=== PATIENT | female | born 1950 | race Hispanic/Latino ===

== ENCOUNTER 2023-10-30 16:09 | Outpatient (CLI) | payer MEDICARE, OTHER ==
[2023-10-30 17:50] LABS: #Eosinphils 0.2 10x3/uL (0.0-0.5); #Monocytes 0.6 10x3/uL (0.0-1.1); #Neutrophils 4.6 10x3/uL (1.5-8.4); %Basophils 0.4 % (0.0-2.0); %Eosinophils 3.3 % (0.0-6.0); %Lymphocytes 23.3 % (18.0-47.0); %Monocytes 8.8 % (0.0-10.0); %Neutrophils 63.9 % (40.0-75.0); Hematocrit 39.4 % (34.9-44.5); Hemoglobin 12.9 g/dL (12.0-15.5); Mean Corpuscular HGB CONC 32.7 g/dL (32.0-36.0); Mean Corpuscular Hemoglobin 30.1 pg (27.0-33.0); Mean Corpuscular Volume 92.1 fl (81.6-98.3); Mean Platelet Volume 9.8 fl (7.4-10.4); Platelet Count 304 10x3/uL (150-450); RBC Distribution Width 13.9 % (11.5-14.5); Red Blood Cell (RBC) Count 4.28 10x6/uL (3.90-5.03); White Blood Cell (WBC) Count 7.2 10x3/uL (3.5-10.5)
[2023-10-30 17:51] LABS: ALT (SGPT) 30 U/L (8-55); AST (SGOT) 25 U/L (5-34); Albumin 4.1 g/dL (3.4-4.8); Alkaline Phosphatase 64 U/L (40-110); Anion Gap 12 mmol/L (10-20); BUN (Urea Nitrogen) 27 mg/dL (9.8-20.1); Bilirubin, Direct 0.1 mg/dL (0.1-0.3); Bilirubin, Total 0.3 mg/dL (0.2-1.2); Calc. Creatinine Clearance 0 mL/min (70-130); Calcium 9.5 mg/dL (7.8-10.44); Carbon Dioxide 27 mmol/L (23-31); Chloride 107 mmol/L (98-107); Estimated GFR 82; Glucose 78 mg/dL (83-110); Potassium 3.9 mmol/L (3.5-5.1); Protein, Total 6.5 g/dL (5.8-8.1); Sodium 142 mmol/L (136-145)
== END 2023-10-30 16:10 | disposition home or self-care (01) ==
LOC: LABBT 16:09
PROVIDERS: ATTEND Surgery
DX: Z01.818 Encounter for other preprocedural examination (principal); K80.20 Calculus of gallbladder without cholecystitis without obstruction
CPT/HCPCS: 80048; 80076; 85025; 93005; 93010

== ENCOUNTER 2023-11-10 09:55 | Day surgery (SDC) | payer MEDICARE, OTHER ==
[2023-11-08 13:42] VITALS: BMI 31.1
[2023-11-10] MEDS ORDERED: Lidocaine 1% PF 5 ML VIAL ONE ×2 (10:23→12:11)
[2023-11-10] MEDS ORDERED: Ondansetron PF 4 MG/2 ML Vial ONE ×4 (10:23→13:24)
[2023-11-10] MEDS ORDERED: Dexamethasone 20 MG/5 ML VIAL ONE ×2 (10:23→12:11)
[2023-11-10] MEDS ORDERED: PROPOFOL 20 ML ONE (10:23)
[2023-11-10] MEDS ORDERED: fentaNYL PF 100 MCG/2 ML SYRINGE ONE (10:23)
[2023-11-10] MEDS ORDERED: Rocuronium Bromide 10 MG/ML (10ML VIAL) ONE ×2 (10:24→12:11)
[2023-11-10] MEDS ORDERED: Famotidine/PF 20 mg/2ml Vial ONE (11:08)
[2023-11-10] MEDS ORDERED: Bupivacaine 0.25% HCL 30 ML VIAL ONE (11:21)
[2023-11-10] MEDS ORDERED: EPINEPHrine 1 MG/ML VIAL ONE (11:21)
[2023-11-10] MEDS ORDERED: Propofol 500 MG/50 ML VIAL ONE (11:25)
[2023-11-10] MEDS ORDERED: CEFAZOLIN 2 GM VIAL ONE (11:55)
[2023-11-10] MEDS ORDERED: Sodium Chloride 0.9% 100 ML ONE (11:55)
[2023-11-10] MEDS ORDERED: Succinylcholine 200 MG/10 ml SYRINGE FS ONE ×2 (12:09→12:11)
[2023-11-10] MEDS ORDERED: PROPOFOL 200 MG/20 ML VIAL ONE (12:11)
[2023-11-10] MEDS ORDERED: ePHEDrine Sulfate 50 MG/10 ML VIAL ONE (12:24)
[2023-11-10] MEDS ORDERED: SUGAMMADEX SODIUM 200 MG/2 ML VIAL ONE (12:44)
[2023-11-10] MEDS ORDERED: fentaNYL 50 mcg/mL 1 mL Vial ONE ×2 (13:44→14:30)
== END 2023-11-10 15:55 | disposition home or self-care (01) ==
LOC: SDC 09:55
PROVIDERS: ATTEND Surgery
PROC: 0FT44ZZ Resection of Gallbladder, Percutaneous Endoscopic Approach (ICD-10-PCS; principal; 2023-11-10)
DX: K80.10 Calculus of gallbladder with chronic cholecystitis without obstruction (principal); E78.00 Pure hypercholesterolemia, unspecified; Z90.710 Acquired absence of both cervix and uterus; Z90.89 Acquired absence of other organs; Z88.2 Allergy status to sulfonamides; Z88.5 Allergy status to narcotic agent; Z88.8 Allergy status to other drugs, medicaments and biological substances; Z79.899 Other long term (current) drug therapy
CPT/HCPCS: 47562; J0171; J3010; 88304; C1776; J1100; J1790; J2405; J2704; J3490; S0020; S0028

== ENCOUNTER 2024-05-14 21:46 | Emergency (ER) | payer MEDICARE, OTHER ==
[2024-05-14 23:05] LABS: #Basophils 0.03 10x3/uL (0.0-0.2); %Basophils 0.2 % (0.0-1.0); %Eosinophils 1.3 % (0.0-10.0); %Lymphocytes 12.8 % (21.0-51.0); %Monocytes 5.7 % (0.0-10.0); %Neutrophils 79.6 % (42.0-75.0); Hematocrit 38.4 % (36.0-47.0); Hemoglobin 13.2 g/dL (12.0-16.0); Mean Corpuscular HGB CONC 34.4 g/dL (32.0-36.0); Mean Corpuscular Hemoglobin 31.5 pg (27.0-31.0); Mean Corpuscular Volume 91.6 fL (78.0-98.0); Mean Platelet Volume 9.8 fL (7.4-10.4); Platelet Count 233 10x3/uL (130-400); RBC Distribution Width 12.9 % (11.5-14.5); Red Blood Cell (RBC) Count 4.19 mill/uL (4.20-5.40)
[2024-05-14] MEDS ORDERED: Morphine 4 MG/ML VIAL ONE (23:19)
[2024-05-14] MEDS ORDERED: Ondansetron PF 4 MG/2 ML Vial ONE (23:20)
[2024-05-14 23:27] LABS: Bacteria/HPF None Seen HPF (None Seen); Bilirubin Negative (Negative); Blood, Urine Negative (Negative); CAUTI Indications for Culture Dysuria,urgency,freq; Clarity Turbid (Clear); Glucose, Urine (Dipstick) Normal (Negative); Ketone, Urine Negative (Negative); Leukocyte Negative Leu/uL (Negative); Nitrite Negative (Negative); Protein, Urine (Dipstick) Negative (Neg-Trace); RBC/HPF 0-3 HPF (0-3); Specific Gravity, Urine 1.011 (1.002-1.036); Squamous Epithelial 0-3 HPF (0-3); Urobilinogen Normal mg/dL (Less than 2); WBC/HPF 0-3 HPF (0-3); pH, Urine 7.5 (5.0-9.0)
[2024-05-14 23:28] LABS: Urine Culture Reflex No No
[2024-05-14 23:29] LABS: ALT (SGPT) 36 U/L (8-55); AST (SGOT) 28 U/L (5-34); Albumin 4.2 g/dL (3.4-4.8); Alkaline Phosphatase 54 U/L (40-110); Anion Gap 14 mmol/L (10-20); BUN (Urea Nitrogen) 26 mg/dL (9.8-20.1); Bilirubin, Total 0.3 mg/dL (0.2-1.2); Calc. Creatinine Clearance 0 mL/min (70-130); Calcium 9.8 mg/dL (7.8-10.44); Carbon Dioxide 23 mmol/L (23-31); Chloride 108 mmol/L (98-107); Estimated GFR 68; Globulin 2.5 g/dL (2.4-3.5); Glucose 144 mg/dL (83-110); Potassium 3.5 mmol/L (3.5-5.1); Protein, Total 6.7 g/dL (5.8-8.1); Sodium 141 mmol/L (136-145)
[2024-05-14 23:30] LABS: Troponin I Less than 0.010 ng/mL (< 0.028)
[2024-05-14 23:40] LABS: Lipase 37 U/L (8-78)
[2024-05-15] MEDS ORDERED: Ketorolac Tromethamine 30 MG (1 mL) VIAL ONE (00:38)
== END 2024-05-15 00:39 | disposition home or self-care (01) ==
LOC: ERS 21:46
DX: N20.1 Calculus of ureter (principal)
CPT/HCPCS: 74176; 80053; 81001; 83690; 84484; 85025; 93005; 96374; 96375; 99284; J1885; J2270; J2405

== ENCOUNTER 2024-08-05 17:24 | Emergency (ER) | payer MEDICARE, OTHER ==
[2024-08-05] MEDS ORDERED: Morphine 4 MG/ML VIAL ONE ×2 (18:00→21:37)
[2024-08-05] MEDS ORDERED: PROPOFOL 20 ML ONE (19:11)
[2024-08-05] MEDS ORDERED: KETAMINE 100 MG/ML (5ML VIAL) ONE (19:12)
[2024-08-05] MEDS ORDERED: Gabapentin 300 MG CAP ONE (22:51)
== END 2024-08-05 23:10 | disposition home or self-care (01) ==
LOC: ERS 17:24
DX: S43.014A Anterior dislocation of right humerus, initial encounter (principal); W01.0XXA Fall on same level from slipping, tripping and stumbling without subsequent striking against object, initial encounter
CPT/HCPCS: 73030; 73060; 93005; J2272; J2704; 23650; 96374; 96375; 96376